=== PATIENT | female | born 1965 | race Caucasian/White ===

== ENCOUNTER → 2018-07-07 | Outpatient (CLI) | payer OTHER ==
[~2018-07-07] MED LIST: AUGMENTIN 875875 MG PO; CELEXA20 MG PO; VISTARIL 25 MG25 M1 PO; WELLBUTRIN XL300 MG PO
== END ==
LOC: M.RAD 15:34
DX: Z12.31 Encounter for screening mammogram for malignant neoplasm of breast (principal); F32.9 Major depressive disorder, single episode, unspecified; Z72.89 Other problems related to lifestyle

== ENCOUNTER 2021-07-25 18:54 | Emergency (ER) | payer OTHER ==
[~2021-07-25] VITALS: Ht 152.4 cm; Wt 79.4 kg
[2021-07-25] MEDS ORDERED: PREDNISONE 20 M20 MG PO (19:14)
[2021-07-25] MEDS ORDERED: CEPHALEXIN500 MG PO (19:14)
[2021-07-25 19:25] VITALS: BP 148/97
== END 2021-07-25 19:25 | disposition home or self-care (01) ==
LOC: M.ERS 18:54
DX: L25.9 Unspecified contact dermatitis, unspecified cause (principal); F32.9 Major depressive disorder, single episode, unspecified; Z90.49 Acquired absence of other specified parts of digestive tract; Z90.710 Acquired absence of both cervix and uterus